=== PATIENT | female | born 1990 | race Caucasian/White ===

== ENCOUNTER 2025-03-01 07:37 | Inpatient (IN) ==
[2025-03-01] MEDS ORDERED: OXYTOCIN 30 UNITS/NSS 30 UNITS/500 ML BAG IV PRN (08:06)
[2025-03-01] MEDS ORDERED: LIDOCAINE 1% LOCAL 20 ML VIAL INFIL PRN (08:06)
[2025-03-01] MEDS ORDERED: Patient's HEIGHT &/or WEIGHT Needed SCH (08:15)
[2025-03-01 08:35] LABS: Hematocrit (blood only) 37.5 % (37.0-47.0); Hemoglobin 12.6 g/dl (12.0-16.0); Mean Corpuscular Hemoglobin 30.7 pg (25.0-34.0); Mean Corpuscular Hgb Conc 33.6 g/dL (32.0-36.0); Mean Corpuscular Volume 91.5 fL (80.0-100.0); Mean Platelet Volume 10.1 fL (9.4-12.4); Platelet Count 203 K/uL (130-400); RDW Coefficient of Variation 13.9 % (11.5-14.5); RDW Standard Deviation 47.1 fL (36.4-46.3); White Blood Count 8.81 K/ul (4.8-10.8)
[2025-03-01] MEDS: LACTATED RINGER'S 1,000 ML IV PRN (09:25)
[2025-03-01] MEDS: OXYTOCIN 30 UNITS/NSS 30 UNITS/500 ML BAG IV PRN (09:30)
--- NOTE | 2025-03-01 14:36 | History & Physical Report ---
Date of Service March 01, 2025 Assessment & Plan (1) Supervision of normal intrauterine in primigravida: Plan: Pt was admitted to L&D this morning. EFM/toco/labs. OK for epidural when she desires. Cervix 2-3/50/-2, jones bulb placed, pitocin started. FHT Cat 1 [place] rare Admission and Anticipated Discharge Date Admission Date: March 01, 2025 History of Present Illness Chief Complaint: IOL Primary Care Provider: Jayla Andrews MD 34yo @ 41 0, IOL for postdates. Allergies Allergy/AdvReac Type Severity Reaction Status Date / Time No Known Allergies Allergy Verified 02/28/25 15:17 Home Medications Medication Instructions Recorded Confirmed Type levothyroxine 25 mcg tablet 25 mcg PO DAILY 03/01/25 03/01/25 History vits no.124-ferrous fum 1 tab PO HS 03/01/25 03/01/25 History 27 mg iron-folic acid 800 mcg tablet ( Vitamin) Patient History Medical History Hypothyroidism Anxiety and depression Family History Grandmother (Paternal) Myocardial infarction Grandfather (Paternal) Stroke Other Heart disease Hypertension Denies family history of Ovarian cancer Prostate cancer Breast cancer Colorectal cancer Social History Smoking Status: Never smoker Second Hand Exposure: No; Do You Dip or Chew Tobacco: No; Hx Alcohol Use: No Hx Substance Use: No Preferred Language: Yi Job Service Specialist Required: No Beliefs That Will Affect Care: None marital status: marital status details: Darinel (36) [phone] Current Living Situation: Spouse Current Living Situation Comment: and 1 dog current occupational status: employed current occupation: Pharmacist @ [employer] How many Children do You have: 0 Other Information That Helps Us Care for You: No Feels Safe at Home: Yes Safety Concerns: Feels Safe At This Time Childhood Exposure to Second-Hand Smoke: No Diet: regular Review of Systems All systems reviewed & are unremarkable except as noted in HPI & below Physical Exam Constitutional: WD/WN, vitals as above Respiratory: normal respiratory effort, lungs clear to auscultation no respiratory distress Cardiovascular: Rate/Rhythm: regular rate and regular rhythm Gastrointestinal (Abdomen): Inspection/Auscultation: abdomen normal to inspection Percussion/Palpation: abdomen soft; abdomen nontender Gravid. No s/s chorio or abruption. Skin: no rashes, warm and dry Psychiatric: A+Ox3, euthymic affect Results & Data Vital Signs (Past 12 Hours) Vital Signs Temp Pulse Resp BP 03/01/25 14:21 88 125/78 03/01/25 13:18 100 H 127/67 03/01/25 12:40 83 111/69 03/01/25 11:08 90 118/72 03/01/25 10:24 85 131/74 03/01/25 07:52 96 H 121/82 03/01/25 07:52 36.5 C 13 Coding Level of Care Code None Diagnoses Supervision of normal intrauterine in primigravida Z34.00
[2025-03-01] MEDS ORDERED: fentANYL 2 MCG/ML BUPIVacaine 0.125%-NSS 100ML BAG EPI PRN (15:41)
[2025-03-01] MEDS ORDERED: LIDOCAINE 2% MPF LOCAL 5 ML VIAL EPI PRN (15:41)
[2025-03-01] MEDS ORDERED: SODIUM CHLORIDE 0.9% PF INJ 10 ML VIAL EPI PRN (15:41)
[2025-03-01] MEDS ORDERED: fentaNYL citrate PF 100 MCG/2 ML VIAL EPI PRN (15:41)
[2025-03-01] MEDS ORDERED: ePHEDrine sulfate 50 MG/ML AMP IV PRN ×2 (15:41→19:49)
[2025-03-01] MEDS ORDERED: NALBUPHINE HCL INJ 10 MG/ML AMP IV PRN ×2 (15:41→19:49)
[2025-03-01] MEDS ORDERED: diphenhydrAMINE 50 MG/ML VIAL IV PRN ×3 (15:41→20:38)
[2025-03-01] MEDS ORDERED: ROPIVACAINE 0.5% PF 5 MG/ML 20 ML VIAL EPI PRN (15:41)
[2025-03-01] MEDS ORDERED: NALOXONE HCL 0.4 MG/1 ML VIAL/CARP IV PRN ×2 (15:41→19:49)
[2025-03-01] MEDS ORDERED: NALOXONE HCL 1 MG in SODIUM CHLORIDE 0.9% 1,000 ML IV PRN ×2 (15:41→19:49)
[2025-03-01] MEDS ORDERED: BUPIVACAINE 0.25% PF 30 ML VIAL EPI PRN (15:41)
--- NOTE | 2025-03-01 15:44 | Anesthesiology Consultation ---
Date of Service March 01, 2025 Assessment & Plan Chart Review Chart Review: Patient NOT seen in Pre Admission Testing and Acceptable Risk for Labor Epidural Consults Requested none ASA ASA2 Proposed Anesthesia Anesthesia Type: Labor Epidural Risk / Benefits Reviewed With: PT / POA / Parent / Guardian, Accepts Plan and Informed Consent Obtained History Height/Weight Height: 5 ft 4 in Weight: 78.471 kg Allergies Allergy/AdvReac Type Severity Reaction Status Date / Time No Known Allergies Allergy Verified 02/28/25 15:17 Medications Home Medications Medication Instructions Recorded Confirmed Last Taken levothyroxine 25 mcg tablet 25 mcg PO DAILY 03/01/25 03/01/25 03/01/25 vits no.124-ferrous fum 1 tab PO HS 03/01/25 03/01/25 02/28/25 27 mg iron-folic acid 800 mcg tablet ( Vitamin) Active Medications Generic Name Dose Route Start Last Admin Trade Name Freq PRN Reason Stop Dose Admin Oxytocin 30 units in 500 mls @ 8 mls/hr 03/01/25 08:06 03/01/25 11:46 Pitocin 30 Units/Nss IV 03/03/25 08:05 0.48 units/hr .Q24H PRN 8 mls/hr Labor Induction/Augmentation Titration Protocol 0.48 UNITS/HR Lactated Ringer's 1,000 mls @ 125 mls/hr 03/01/25 08:06 03/01/25 15:57 Lr IV 03/03/25 08:05 125 mls/hr .Q8H PRN Infusion L&D Protocol Protocol NPO Date Last Intake of Fluids: 03/01/25 Time Last Intake of Fluids: 13:00 Date Last Intake of Solids: 03/01/25 Time Last Intake of Solids: 06:30 Past Medical History Medical History Hypothyroidism Anxiety and depression Exercise / Class Metabolic Activity 1 > 8 Run/Swim/Ski/Tennis Past Family History Family History Grandmother (Paternal) Myocardial infarction Grandfather (Paternal) Stroke Other Heart disease Hypertension Denies family history of Ovarian cancer Prostate cancer Breast cancer Colorectal cancer Past Anesthesia History No Hx of Anesthesia Complications and No Family Hx of Anesthesia Complications History of PONV No Hx of PONV and No Hx of Motion Sickness Social History Smoking Status: Never smoker Do You Dip or Chew Tobacco: No Hx Alcohol Use: No Hx Substance Use: No Review of Systems ROS Unobtainable: All systems reviewed & are unremarkable except as noted in HPI & below Physical Exam Vital Signs Last Vital Signs Temp 37.1 C 03/01/25 11:46 Pulse 88 03/01/25 14:21 Resp 13 03/01/25 07:52 BP 125/78 03/01/25 14:21 ENMT Mouth: no TMJ abnormality Thyromental Distance: > or= 3.5 Finger Breadths Mallampati Class: II Neck normal visual inspection and trachea midline; neck extension not limited Respiratory normal respiratory effort Auscultation: lungs clear to auscultation bilaterally Cardiovascular Rate/Rhythm: regular rate and regular rhythm Heart Sounds: no murmur Musculoskeletal Spine: normal cervical ROM Extremities: full ROM of extremities Neurologic moves all extremities Psychiatric Orientation: alert and oriented x 3 Testing Laboratory Results 03/01/25 08:16 03/01/25 12:36 POC Glucose 85
[2025-03-01] MEDS: fentaNYL citrate PF 100 MCG/2 ML VIAL ONE (16:01)
[2025-03-01] MEDS: LIDOCAINE 2%/EPINEPHRINE 1:200,000 20 ML PF ONE (16:02)
[2025-03-01] MEDS: BUPIVACAINE 0.25% PF 30 ML VIAL ONE (16:02)
[2025-03-01] MEDS: fentANYL 2 MCG/ML BUPIVacaine 0.125%-NSS 100ML BAG ONE (16:04)
[2025-03-01] MEDS ORDERED: LIDOCAINE 2%/EPINEPHRINE 1:200,000 20 ML PF ONE (18:52)
[2025-03-01] MEDS ORDERED: PHENYLEPHRINE 100MCG/ML 5ML SYR ONE (18:52)
[2025-03-01] MEDS ORDERED: ONDANSETRON INJ 2 MG/ML 2 ML VIAL ONE (18:52)
[2025-03-01] MEDS ORDERED: DEXAMETHASONE SOD INJ 4 MG/ML VIAL ONE (18:52)
--- NOTE | 2025-03-01 18:52 | History & Physical Bridge Note ---
Date of Service March 01, 2025 History & Physical Bridge Note I have examined the patient, reviewed the History & Physical and in the interval since the performance of the History & Physical I have noted the following changes of clinical significance: Patient has progressed to 5cm dilation, however developed late decelerations. Resuscitative measures performed, pitocin stopped, however baby continued to show late decelerations while off pitocin. Discussed with patient that would recommend that we proceed to section for intolerance to labor, she is agreeable. Informed consent obtained. Will proceed to OR.
[2025-03-01] MEDS ORDERED: MoRPHine SULFATE PF 1 MG/ML 10 ML AMP/VIAL ONE (18:53)
[2025-03-01] MEDS ORDERED: LACTATED RINGER'S 1,000 ML IV SCH ×2 (19:00→20:38)
[2025-03-01] MEDS: ceFAZolin 2000MG 2,000 MG/15 ML SYR IV SCH (19:06)
[2025-03-01] MEDS: CITRIC ACID/SODIUM CITRATE 15 ML UDC PO SCH (19:07)
[2025-03-01] MEDS: ePHEDrine sulfate 50 MG/ML AMP ONE (19:28)
[2025-03-01] MEDS: SODIUM CHLORIDE 0.9% PF INJ 10 ML VIAL ONE (19:28)
[2025-03-01] MEDS: BUPIVACAINE 0.25% PF 30 ML VIAL EPI STA (19:29)
[2025-03-01] MEDS: LIDOCAINE 2%/EPINEPHRINE 1:200,000 20 ML PF EPI STA (19:29)
[2025-03-01] MEDS: fentaNYL citrate PF 100 MCG/2 ML VIAL EPI STA (19:29)
[2025-03-01] MEDS: SODIUM CHLORIDE 0.9% PF INJ 10 ML VIAL EPI STA (19:30)
[2025-03-01] MEDS: AZITHROMYCIN 500 MG/255 ML BAG IV ONE (19:40)
[2025-03-01] MEDS ORDERED: HYDROmorphone INJ 0.5 MG/0.5 ML SYR IV PRN (19:49)
[2025-03-01] MEDS ORDERED: METOCLOPRAMIDE HCL 20 MG in SODIUM CHLORIDE 0.9% 50 ML IV PRN (19:49)
[2025-03-01] MEDS ORDERED: LACTATED RINGER'S 500 ML IV PRN (19:49)
[2025-03-01] MEDS ORDERED: PROMETHAZINE 6.25 MG/50.25 ML BAG IV PRN (19:49)
[2025-03-01] MEDS ORDERED: MoRPHine SULFATE PF 1 MG/ML 10 ML AMP/VIAL EPI ONE (19:49)
[2025-03-01] MEDS ORDERED: oxyCODONE HCL IR 5 MG TAB (IMMEDIATE RELEASE) PO PRN (19:49)
[2025-03-01] MEDS ORDERED: MEPERIDINE HCL 25 MG/ML CARP/VIAL IV PRN (19:49)
[2025-03-01] MEDS ORDERED: NALOXONE HCL 0.08 MG in SYRINGE 1.8 ML IV PRN (19:49)
[2025-03-01] MEDS ORDERED: ONDANSETRON INJ 2 MG/ML 2 ML VIAL IV PRN (19:49)
--- NOTE | 2025-03-01 19:49 | Communication Note ---
Date of Service: March 01, 2025 c/s called for intolerance of labor. Patient's epidural has been working well. will plan to dose epidural for anesthesia. ASA2E.
[2025-03-01] MEDS: ARISTA ABSORBABLE HEMOSTAT 3GM TOP ONE (19:58)
[2025-03-01] MEDS ORDERED: NO NARCOTICS OR SEDATIVES SCH (20:00)
[2025-03-01] MEDS ORDERED: SODIUM CHLORIDE 0.9% 1,000 ML IV SCH (20:00)
[2025-03-01 20:03] LABS: Base Excess Cord Arterial Bld 0.5 mEq/L (-9-1.8); Base Excess Cord Venous Blood -0.2 mEq/L (-7.7-1.9); CO2 Cord Arterial Blood 61 mmHg (39.1-73.5); Cord Venous Blood HCO3 25 mmol/L (18.4-26.8); Cord Venous Blood PCO2 44 mmHg (30.4-57.2); Cord Venous Blood PO2 31 mmHg (14.1-43.3); Cord Venous Blood pH 7.37 (7.20-7.44); HCO3 Cord Arterial Blood 29 mmol/L (19.7-28.5); O2 Saturation Cord Venous Bld 66.6 % (<68); Oxygen Sat Cord Arterial Blood < 60.0 % (<60); PO2 Cord Arterial Blood < 20 mmHg (4.1-31.7); pH Cord Arterial Blood 7.28 (7.1-7.38)
--- NOTE | 2025-03-01 20:21 | Operative Report ---
Post Operative Report Pre & Post Diagnosis Operation Date: 03/01/25 19:05 Pre-Op Diagnosis: Nonreassuring heart tracing Post-Op Diagnosis: same as pre-op I identified the patient and participated in the time-out.: Yes Procedure Operation Date: 03/01/25 19:05 Actual Procedures p Primary Low Transverse Section in for the of a live male child at 1930 - Lidia Hein DO Surgeon Lidia Hein DO Volumetric Weigher Ivonne Hickey RN Quantitative Blood Loss (QBL) 457 Findings Consistent with Post-Op Diagnosis Specimens placenta, cord blood, cord gas Drains jones clear yellow Anesthesia Type Labor Epidural Complications none Disposition Accompanied Patient To Recovery: No Disposition: L&D Indications 34yo @ 41 0/7, postdates induction, heart tracing Category 3 and nonresponsive to resuscitative measures - recurrent late decelerations, remote from delivery (dilation to 5cm). Description of Procedure The patient was seen in her labor and delivery room, risks benefits and alternatives to surgery were reviewed. Informed consent obtained. Questions were answered. She was taken to the operating room, epidural anesthesia was redosed. She was then prepared and draped in the usual sterile fashion in the supine position with a leftward tilt. Timeout was confirmed. A Pfannenstiel skin incision was made with a scalpel, and carried through to the underlying layer of fascia. Fascia was nicked at midline, and this incision was extended bilaterally. The superior aspect of the fascial incision was grasped with Susan clamps x2, elevated off the underlying rectus abdominis muscles, and dissected sharply and bluntly. In similar fashion, the inferior aspect of the fascial incision was dissected. The rectus abdominis muscles were , and the peritoneum was entered bluntly digitally. This was extended bilaterally. The bladder flap was taken down carefully using Metzenbaum scissors. Using a new scalpel, a low transverse uterine incision was created. Clear amniotic fluid noted. The infant was delivered from a cephalic presentation. The head delivered, followed by shoulders and body. Spontaneous cry on the field. The cord was doubly clamped and cut, and the infant was handed off to the waiting junior technical writer. A segment was retained for cord gases. Cord blood was obtained. The placenta was delivered spontaneously intact. The uterus was exteriorized, and cleared of all clots and debris. The hysterotomy incision was reapproximated using 0 Vicryl in a running locked stitch. A second layer of the same suture was used to imbricate the incision. Posterior uterus was evaluated and normal. The uterus was returned to the abdomen, and gutters were cleared of clots and debris. Perclot powder used across the bladder flap. Excellent hemostasis was observed. The fascial incision was reapproximated using 0 Vicryl in a running stitch. The subcutaneous tissue was irrigated, and reapproximated using 2-0 plain gut in a running stitch. The skin was reapproximated using 4-0 Vicryl in a running subcuticular stitch. Steri-Strips and a bandage were applied. The patient tolerated the procedure well, and will be taken to the recovery area in stable and good condition. I attest to the content of the Intraoperative Record and any orders documented therein. Any exceptions are noted below. OB Procedure Charges 28178
[2025-03-01] MEDS ORDERED: CALCIUM CARBONATE 500 MG CHEWABLE TAB PO PRN (20:38)
[2025-03-01] MEDS ORDERED: MAGNESIUM HYDROXIDE SUSP 30 ML UDC PO PRN (20:38)
[2025-03-01] MEDS ORDERED: HYDROCORTISONE ACETATE 25 MG SUPP PR PRN (20:38)
[2025-03-01] MEDS ORDERED: BENZOCAINE 20% SPRY 85 APPLN/85 GM CAN EXT PRN (20:38)
[2025-03-01] MEDS ORDERED: SENNA 8.6 MG TAB PO PRN (20:38)
[2025-03-01] MEDS: ACETAMINOPHEN 1,000 MG/100 ML VIAL IV STA (20:42)
[2025-03-01] MEDS: DOCUSATE SODIUM 100 MG CAP PO SCH (20:57)
[2025-03-01] MEDS: SIMETHICONE 80 MG CHEW PO SCH (20:57)
[2025-03-01] MEDS: KETOROLAC 30 MG/ML VIAL IV SCH (20:57)
--- NOTE | 2025-03-01 21:10 | Anesthesiology Progress Note ---
Date of Service March 01, 2025 Anesthesia Post Procedure Vital Signs Vital Signs: Temp Pulse Resp BP Pulse Ox 03/01/25 21:08 116 H 97 03/01/25 21:06 117 H 127/59 L 03/01/25 21:04 227/164 H 03/01/25 21:04 122 H 204/149 H 03/01/25 21:03 125 H 96 03/01/25 20:58 130 H 97 03/01/25 20:53 131 H 97 03/01/25 20:49 129 H 95/75 L 03/01/25 20:48 129 H 96 03/01/25 20:42 122 H 100 03/01/25 20:37 112 H 96/58 L 98 03/01/25 20:32 114 H 100 03/01/25 20:27 107 H 97 03/01/25 20:22 109 H 98 03/01/25 20:20 109 H 126/90 03/01/25 19:12 90 97 03/01/25 19:07 83 97 03/01/25 19:02 97 H 97 03/01/25 19:01 100 H 100/72 03/01/25 18:57 95 H 98 03/01/25 18:52 91 H 99 03/01/25 18:47 98 H 97 03/01/25 18:42 87 97 03/01/25 18:37 94 H 98 03/01/25 18:32 87 122/58 L 97 03/01/25 18:27 97 H 99 03/01/25 18:22 87 96 03/01/25 18:19 85 98/53 L 03/01/25 18:17 85 96 03/01/25 18:12 86 98 03/01/25 18:07 97 H 97 03/01/25 18:02 89 99 03/01/25 18:01 94 H 91 03/01/25 17:57 88 97 03/01/25 17:52 95 H 99 03/01/25 17:48 107 H 99/53 L 03/01/25 17:47 107 H 99 03/01/25 17:46 100 H 96/52 L 03/01/25 17:42 106 H 99 03/01/25 17:37 107 H 100 03/01/25 17:32 95 H 99 03/01/25 17:31 93 H 102/58 L 05/01/25 17:27 105 H 99 03/01/25 17:22 102 H 100 03/01/25 17:17 100 H 99 03/01/25 17:16 91 H 101/56 L 03/01/25 17:12 93 H 98 03/01/25 17:07 93 H 99 03/01/25 17:02 98 H 98 03/01/25 16:57 95 H 99 03/01/25 16:52 82 98 03/01/25 16:47 88 98 03/01/25 16:46 92 H 105/66 03/01/25 16:42 81 97 03/01/25 16:37 86 97 03/01/25 16:32 84 97 03/01/25 16:31 80 115/70 03/01/25 16:27 98 H 97 03/01/25 16:22 87 98 03/01/25 16:17 83 97 03/01/25 16:15 86 114/75 03/01/25 16:12 84 97 03/01/25 16:11 100 H 118/75 03/01/25 16:07 98 03/01/25 16:07 99 H 03/01/25 16:07 96 H 119/82 03/01/25 16:05 87 120/80 03/01/25 16:03 88 122/81 03/01/25 16:02 90 97 03/01/25 16:00 86 126/79 03/01/25 15:57 99 03/01/25 15:57 89 03/01/25 15:57 94 H 147/80 H 03/01/25 15:52 103 H 98 03/01/25 15:48 36.8 C 03/01/25 15:47 97 H 99 03/01/25 15:42 120 H 98 03/01/25 14:21 88 125/78 03/01/25 13:18 100 H 127/67 03/01/25 12:40 83 111/69 03/01/25 11:46 37.1 C 03/01/25 11:08 90 118/72 03/01/25 10:24 85 131/74 03/01/25 07:52 96 H 121/82 03/01/25 07:52 36.5 C 13 Transfer of Care Handoff Completed per policy Notes Mental Status: alert / awake / arousable Patient Amnestic to Procedure: Yes Nausea / Vomiting: adequately controlled Pain: adequately controlled Airway Patency, RR, SpO2: stable & adequate BP & HR: stable & adequate Hydration State: stable & adequate Neuraxial Anesthesia: was administered and sensory block is resolving Anesthetic Complications: no major complications apparent and Pt Satisfied with anesthetic care
--- NOTE | 2025-03-01 21:11 | Anesthesia Procedure Note ---
Date of Service March 01, 2025 Anesthesia Post Epidural Note Vital Signs Vital Signs: Temp Pulse Resp BP Pulse Ox 36.8 C 116 H 13 127/59 L 97 03/01/25 15:48 03/01/25 21:08 03/01/25 07:52 03/01/25 21:06 03/01/25 21:08 Notes Mental Status: alert / awake / arousable and participated in evaluation Nausea / Vomiting: adequately controlled Pain: adequately controlled Airway Patency, RR, SpO2: stable & adequate BP & HR: stable & adequate Hydration State: stable & adequate Neuraxial Anesthesia: was administered and sensory block is resolving Anesthetic Complications: no major complications apparent Epidural: Removed without complications and With tip intact
[2025-03-02] MEDS: OXYTOCIN 20 UNITS/LR 1,002 ML IV SCH (00:11)
[2025-03-02] MEDS: DIPHTHER/TETAN/PERTUS Vaccine (Tdap, Adol/Adult) 0.5mL IM ONE (01:50)
[2025-03-02] MEDS: ACETAMINOPHEN 325 MG TAB PO SCH (01:51)
[2025-03-02] MEDS: LEVOTHYROXINE SODIUM 25 MCG TABLET PO SCH (06:11)
[2025-03-02 07:02] LABS: Basophils # (auto) 0.02 K/uL (0.00-0.20); Basophils % (auto) 0.1 %; Hematocrit (blood only) 30.9 % (37.0-47.0); Hemoglobin 10.6 g/dl (12.0-16.0); Immature Granulocytes # (auto) 0.08 K/uL (0.01-0.20); Immature Granulocytes % (auto) 0.5 %; Lymphocytes # (auto) 1.14 K/uL (1.20-3.40); Lymphocytes % (auto) 7.3 %; Mean Corpuscular Hemoglobin 31.5 pg (25.0-34.0); Mean Corpuscular Hgb Conc 34.3 g/dL (32.0-36.0); Mean Platelet Volume 10.5 fL (9.4-12.4); Monocytes # (auto) 1.27 K/uL (0.11-0.59); Monocytes % (auto) 8.1 %; Neutrophils # (auto) 13.14 K/uL (1.40-6.50); Platelet Count 182 K/uL (130-400); RDW Coefficient of Variation 13.7 % (11.5-14.5); RDW Standard Deviation 46.3 fL (36.4-46.3); Red Blood Count 3.36 M/uL (4.20-5.40); White Blood Count 15.65 K/ul (4.8-10.8)
--- NOTE | 2025-03-02 07:41 | Obstetrical Progress Note ---
Date of Service March 02, 2025 Assessment & Plan (1) Postoperative examination: POD#1 doing well. Bandage clean/dry. Continue routine care per protocol. Subjective Ambulation: ambulating normally Voiding: no voiding problems Diet Tolerance:: regular diet Lochia:: Moderate Review of Systems All systems reviewed & are unremarkable except as noted in HPI & below Physical Exam Constitutional WD/WN, vitals as above no acute distress Respiratory normal respiratory effort Cardiovascular Rate/Rhythm: regular rate and regular rhythm Gastrointestinal (Abdomen) Inspection/Auscultation: abdomen normal to inspection; abdomen not distended Percussion/Palpation: abdomen soft Genitourinary OB Exam Abdomen: + fundal height Fundus: + firm; not tender Results & Data Vital Signs (Past 12 Hours) Vital Signs Temp Pulse Pulse Resp BP BP Pulse Ox 03/02/25 06:34 18 97 03/02/25 04:54 18 96 03/02/25 03:40 36.8 C 82 18 105/65 96 03/02/25 03:30 18 96 03/02/25 02:00 20 97 03/02/25 01:00 18 98 03/02/25 00:00 18 96 03/02/25 00:00 36.8 C 81 18 114/73 96 03/01/25 22:28 96 03/01/25 22:28 106 H 03/01/25 22:28 98 H 108/65 03/01/25 22:23 102 H 95 03/01/25 22:18 105 H 96 03/01/25 22:13 105 H 96 03/01/25 22:08 100 H 96 03/01/25 22:03 102 H 96 03/01/25 21:58 95 03/01/25 21:58 109 H 03/01/25 21:58 104 H 123/56 L 03/01/25 21:53 101 H 96 03/01/25 21:50 16 03/01/25 21:48 100 H 96 03/01/25 21:43 111 H 96 03/01/25 21:38 103 H 95 03/01/25 21:33 105 H 96 03/01/25 21:28 104 H 96 03/01/25 21:26 106 H 113/58 L 03/01/25 21:23 104 H 96 03/01/25 21:20 16 03/01/25 21:20 18 03/01/25 21:18 111 H 96 03/01/25 21:16 114 H 114/56 L 03/01/25 21:13 114 H 96 03/01/25 21:08 116 H 97 03/01/25 21:06 117 H 127/59 L 03/01/25 21:05 18 03/01/25 21:04 227/164 H 03/01/25 21:04 122 H 204/149 H 03/01/25 21:03 125 H 96 03/01/25 20:58 130 H 97 03/01/25 20:53 131 H 97 03/01/25 20:50 16 03/01/25 20:49 129 H 95/75 L 03/01/25 20:48 129 H 96 03/01/25 20:42 122 H 100 03/01/25 20:37 112 H 96/58 L 98 03/01/25 20:35 18 03/01/25 20:32 114 H 100 03/01/25 20:27 107 H 97 03/01/25 20:22 109 H 98 03/01/25 20:20 36.9 C 16 03/01/25 20:20 109 H 126/90 O2 Del Method 03/02/25 06:34 03/02/25 04:54 03/02/25 03:40 Room Air 03/02/25 03:30 03/02/25 02:00 03/02/25 01:00 03/02/25 00:00 03/02/25 00:00 Room Air 03/01/25 22:28 03/01/25 22:28 03/01/25 22:28 03/01/25 22:23 03/01/25 22:18 03/01/25 22:13 03/01/25 22:08 03/01/25 22:03 03/01/25 21:58 03/01/25 21:58 03/01/25 21:58 03/01/25 21:53 03/01/25 21:50 03/01/25 21:48 03/01/25 21:43 03/01/25 21:38 03/01/25 21:33 03/01/25 21:28 03/01/25 21:26 03/01/25 21:23 03/01/25 21:20 03/01/25 21:20 03/01/25 21:18 03/01/25 21:16 03/01/25 21:13 03/01/25 21:08 03/01/25 21:06 03/01/25 21:05 03/01/25 21:04 03/01/25 21:04 03/01/25 21:03 03/01/25 20:58 03/01/25 20:53 03/01/25 20:50 03/01/25 20:49 03/01/25 20:48 03/01/25 20:42 03/01/25 20:37 03/01/25 20:35 03/01/25 20:32 03/01/25 20:27 03/01/25 20:22 03/01/25 20:20 03/01/25 20:20
[2025-03-02] MEDS: FERROUS SULFATE 325 MG TAB PO SCH (11:36)
[2025-03-02] MEDS: PRENATAL VITAMIN 1 TAB PO SCH (11:36)
[2025-03-02] MEDS: DC INTRASPINAL MORPHINE ONE (12:51)
[2025-03-02] MEDS ORDERED: diphenhydrAMINE Capsule 25 MG CAP PO PRN (13:50)
[2025-03-02] MEDS ORDERED: HYDROmorphone INJ 0.5 MG/0.5 ML SYR IV PRN (13:50)
[2025-03-02] MEDS ORDERED: ONDANSETRON INJ 2 MG/ML 2 ML VIAL IV PRN (13:50)
[2025-03-02] MEDS ORDERED: PROMETHAZINE 12.5 MG/50.5 ML BAG IV PRN (13:50)
[2025-03-02] MEDS: oxyCODONE HCL IR 5 MG TAB (IMMEDIATE RELEASE) PO PRN (17:43)
[2025-03-02] MEDS ORDERED: KETOROLAC 30 MG/ML VIAL IV PRN (20:23)
[2025-03-02] MEDS: bisacodyL 5 MG TABEC PO SCH (21:11)
[2025-03-02] MEDS: IBUPROFEN 600 MG TAB PO SCH (21:11)
[2025-03-02 22:52] VITALS: RESP 16
[2025-03-03 06:39] LABS: Hematocrit (blood only) 26.8 % (37.0-47.0); Hemoglobin 9.2 g/dl (12.0-16.0)
--- NOTE | 2025-03-03 07:52 | Obstetrical Progress Note ---
Date of Service March 03, 2025 Assessment & Plan (1) care following delivery: (2) S/P primary low transverse : Plan stable, doing well. cont current care. cont to adjust pain meds to achieve good control. work on . Day #:: 2 Subjective Ambulation: ambulating normally Voiding: no voiding problems Passing Gas:: Yes Diet Tolerance:: regular diet Lochia:: Small Feeding Type:: breast feeding some pain issues and rough night with breast feeding. Constitutional: + as per Subjective / HPI Physical Exam Constitutional WD/WN, vitals as above Respiratory normal respiratory effort, lungs clear to auscultation Cardiovascular Rate/Rhythm: regular rate and regular rhythm Gastrointestinal (Abdomen) Inspection/Auscultation: abdomen normal to inspection and + abdominal surgical incision (c/d/i with steris) Percussion/Palpation: abdomen soft Fundus firm 2cm down Musculoskeletal nt calves no edema Neurologic grossly normal Psychiatric A+Ox3, euthymic affect Results & Data Vital Signs (Past 12 Hours) Vital Signs Temp Pulse Resp BP Pulse Ox O2 Del Method 03/02/25 22:51 98.2 F 93 H 16 102/66 96 Room Air
[2025-03-03] MEDS ORDERED: bisacodyL 10 MG SUPP PR PRN (20:23)
[2025-03-03] MEDS: IBUPROFEN 600 MG TAB PO PRN (22:08)
[2025-03-03 22:59] VITALS: TEMP 98.1
[2025-03-04 08:19] VITALS: BP 114/78; PULSE 62; O2SAT 99
[2025-03-04] MEDS: ACETAMINOPHEN 325 MG TAB PO PRN (08:27)
--- NOTE | 2025-03-04 09:32 | Obstetrical Progress Note ---
Date of Service March 04, 2025 Assessment & Plan (1) care following delivery: All questions were answered incision was inspected and found to be clean dry and intact extremity exam was negative for tenderness patient has no significant depressive symptoms Postoperative from section patient meets discharge criteria as she is ambulating well tolerating an oral diet has minimal bleeding and no extremity pain. Discharge instructions were reviewed and [facility] advised to call with any concerns and follow-up in the office discussed. Subjective Ambulation: ambulating normally Voiding: no voiding problems Passing Gas:: Yes Diet Tolerance:: regular diet Lochia:: Small Physical Exam Constitutional WD/WN, vitals as above well developed and well nourished Respiratory normal respiratory effort, lungs clear to auscultation normal respiratory effort Cardiovascular RRR, no murmur, no edema Gastrointestinal (Abdomen) normal bowel sounds, soft, nontender, no hepatosplenomegaly Results & Data Vital Signs (Past 12 Hours) Vital Signs Temp Pulse Resp BP Pulse Ox O2 Del Method 03/04/25 08:15 98.1 F 62 16 114/78 99 Room Air 03/03/25 22:58 98.1 F 81 16 110/74 95 Room Air
== END 2025-03-04 11:40 | disposition home or self-care (01) | DRG 788 ==
LOC: 4S1 07:37 → 4E2 23:07